=== PATIENT | female | born 1955 | race Caucasian/White ===

== ENCOUNTER 2021-02-19 02:17 | Observation (INO) | payer OTHER ==
[2021-02-19 03:07] VITALS: BMI 25.2
[2021-02-19 03:47] LABS: BASO % 0.7 % (0-2.0); EOS % 3.7 % (0-4.5); HEMATOCRIT 37.4 % (32.4-45.2); HEMOGLOBIN 12.5 GM/dL (10.7-15.3); MCH 27.5 pg (25.7-33.7); MCHC 33.5 g/dl (32.0-36.0); MEAN CELL VOLUME 82.2 fl (80-96); MEAN PLT VOLUME 7.7 fl (7.5-11.1); MONO % 7.7 % (3.8-10.2); NEUT % 50.9 % (42.8-82.8); PLATELET COUNT 210 10^3/uL (134-434); RBC 4.55 M/mm3 (3.60-5.2); RDW 14.7 % (11.6-15.6); WHITE BLOOD COUNT 6.4 K/mm3 (4.0-10.0)
[2021-02-19 03:53] LABS: INR 1.01 (0.83-1.09); PROTHROMBIN TIME (PATIENT) 11.3 SEC (9.7-13.0)
[2021-02-19 03:56] LABS: ACTIVATED PTT 30.7 SECONDS (25.2-36.5)
[2021-02-19 04:07] LABS: CHLORIDE 106 mmol/L (98-107); SODIUM 142 mmol/L (136-145)
[2021-02-19 04:09] LABS: ALBUMIN 3.6 g/dl (3.4-5.0); ANION GAP 8 MMOL/L (8-16); CALCIUM 9.5 mg/dL (8.5-10.1); CO2 28 mmol/L (21-32); GLUCOSE,RANDOM 188 mg/dL (74-106)
[2021-02-19 04:12] LABS: SGOT/AST 49 U/L (15-37); SGPT/ALT 35 U/L (13-61)
[2021-02-19 04:14] LABS: BILIRUBIN,TOTAL 0.2 mg/dL (0.2-1); TOT PROT 6.9 g/dl (6.4-8.2)
[2021-02-19 04:15] LABS: ALK PHOS 74 U/L (45-117)
[2021-02-19 05:41] LABS: LIPASE 193 U/L (73-393)
[2021-02-19 07:50] VITALS: BP 139/78; PULSE 66; TEMP 97.7
== END 2021-02-19 19:11 | disposition left against medical advice (07) ==
LOC: JER 02:17 → JERBED 06:10 → UNDOADMOB 06:10 → INTOOBSV 06:10 → JERBED 11:23 → UNDODISOB 19:11
PROVIDERS: ATTEND Internal Medicine
DX: R07.89 Other chest pain (principal); Z95.1 Presence of aortocoronary bypass graft; K76.0 Fatty (change of) liver, not elsewhere classified; K76.89 Other specified diseases of liver; I10 Essential (primary) hypertension; E11.9 Type 2 diabetes mellitus without complications; E03.9 Hypothyroidism, unspecified
CPT/HCPCS: 36415; 71045-TC-FY; 74177-TC; 80053; 82550; 83690; 84484; 85025; 85610; 85730; 93005; 93010; 99285-25; C9803; G0378; Q9967; U0003; U0005

== ENCOUNTER 2022-01-04 08:37 | Emergency (ER) | payer OTHER ==
[2022-01-04 09:15] VITALS: BP 183/89; PULSE 85; RESP 17; TEMP 97.9; BMI 35.9
[2022-01-04] MEDS ORDERED: LIDOCAINE 5% TOPICAL PATCH TP ONE (10:35)
[2022-01-04] MEDS ORDERED: LIDOCAINE 5% TOPICAL PATCH ONE (10:47)
[2022-01-04] MEDS ORDERED: LIDOCAINE PATCH REMOVAL MC SCH (22:00)
== END 2022-01-04 13:01 | disposition home or self-care (01) ==
LOC: JERFT 08:37
DX: M54.32 Sciatica, left side (principal)
CPT/HCPCS: 93971-TC; 99284-25

== ENCOUNTER 2022-03-26 09:00 | Day surgery (SDC) | payer OTHER ==
[2022-03-26] MEDS ORDERED: DEXAMETHASONE SODIUM PHOSPHATE 10 MG, ONDANSETRON INJECTION 8 MG in SODIUM CHLORIDE 100 ML IVPB ONE (09:30)
[2022-03-26] MEDS ORDERED: PERTUZUMAB 840 MG in SODIUM CHLORIDE 250 ML IVPB ONE (10:00)
[2022-03-26] MEDS ORDERED: TRASTUZUMAB-ANNS 500 MG in SODIUM CHLORIDE 250 ML IVPB ONE (11:00)
[2022-03-26 11:44] LABS: BASO % 0.1 % (0-2.0); HEMATOCRIT 29.6 % (32.4-45.2); HEMOGLOBIN 9.5 GM/dL (10.7-15.3); LYMPH % 9.4 % (8-40); MCH 24.2 pg (25.7-33.7); MCHC 32.2 g/dl (32.0-36.0); MEAN PLT VOLUME 7.3 fl (7.5-11.1); NEUT % 84.5 % (42.8-82.8); PLATELET COUNT 369 10^3/uL (134-434); RBC 3.94 M/mm3 (3.60-5.2); RDW 17.4 % (11.6-15.6); WHITE BLOOD COUNT 7.8 K/mm3 (4.0-10.0)
[2022-03-26 12:03] LABS: CHLORIDE 98 mmol/L (98-107); SODIUM 133 mmol/L (136-145)
[2022-03-26 12:06] LABS: ANION GAP 12 MMOL/L (8-16); BLOOD UREA NITROGEN 36.1 mg/dL (7-18); CO2 23 mmol/L (21-32)
[2022-03-26 12:08] LABS: BILIRUBIN,DIRECT 0.1 mg/dL (0.0-0.2)
[2022-03-26 12:09] LABS: CREATININE 1.3 mg/dL (0.55-1.3); SGOT/AST 52 U/L (15-37); SGPT/ALT 18 U/L (13-61)
[2022-03-26 12:10] LABS: TOT PROT 6.8 g/dl (6.4-8.2)
[2022-03-26 12:11] LABS: BILIRUBIN,TOTAL 0.3 mg/dL (0.2-1)
[2022-03-26 12:12] LABS: ALK PHOS 414 U/L (45-117)
[2022-03-26 12:26] LABS: GLUCOSE,RANDOM 494 mg/dL (74-106)
[2022-03-26] MEDS ORDERED: DOCETAXEL 100 MG in SODIUM CHLORIDE 250 ML IV ONE (12:30)
[2022-03-26] MEDS ORDERED: INSULIN (NOVOLOG) ASPART 100 UNITS/ML 10ML VIAL SQ ONE (13:00)
[2022-03-26 17:45] VITALS: TEMP 98.2
[2022-03-26 18:01] VITALS: BP 156/86; PULSE 99; RESP 20
== END 2022-03-26 18:38 | disposition home or self-care (01) ==
LOC: JONCCHEMO 09:00 → JRADIR 09:00 → J7W 13:05 → JONCCHEMO 18:38
PROVIDERS: ATTEND Internal Medicine Hematology & Oncology
PROC: 02HV33Z Insertion of Infusion Device into Superior Vena Cava, Percutaneous Approach (ICD-10-PCS; principal; 2022-03-26)
PROC: B518ZZA Fluoroscopy of Superior Vena Cava, Guidance (ICD-10-PCS; 2022-03-26)
PROC: 3E04305 Introduction of Other Antineoplastic into Central Vein, Percutaneous Approach (ICD-10-PCS; 2022-03-26)
DX: C50.919 Malignant neoplasm of unspecified site of unspecified female breast (principal)
CPT/HCPCS: 36415; 36569; 77001-TC-FY; 80048; 80076; 82962; 84703; 85025; 96367; 96413; 96417; C1751; J2405; J9171; J9306; Q5117

== ENCOUNTER 2022-03-27 15:03 | Day surgery (SDC) | payer OTHER ==
[~2022-03-27 15:03] MED LIST: PEGFILGRASTIM-CBQV (UDENYCA) 6 MG/0.6 ML SYRINGE SQ ONE
[2022-03-27 18:00] VITALS: BP 130/75; PULSE 96; RESP 20; TEMP 97.9
== END 2022-03-27 15:30 | disposition home or self-care (01) ==
LOC: JONCCHEMO 15:03
PROVIDERS: ATTEND Internal Medicine Hematology & Oncology
PROC: 3E013GC Introduction of Other Therapeutic Substance into Subcutaneous Tissue, Percutaneous Approach (ICD-10-PCS; principal; 2022-03-27)
PROC: 3E033GC Introduction of Other Therapeutic Substance into Peripheral Vein, Percutaneous Approach (ICD-10-PCS; 2022-03-27)
DX: C50.919 Malignant neoplasm of unspecified site of unspecified female breast (principal); C78.7 Secondary malignant neoplasm of liver and intrahepatic bile duct; C78.00 Secondary malignant neoplasm of unspecified lung; Z76.89 Persons encountering health services in other specified circumstances
CPT/HCPCS: 96365; 96372; Q5111

== ENCOUNTER 2022-04-16 09:02 | Day surgery (SDC) | payer OTHER ==
[2022-04-16] MEDS ORDERED: DEXAMETHASONE SODIUM PHOSPHATE 10 MG, ONDANSETRON INJECTION 8 MG in SODIUM CHLORIDE 100 ML IVPB ONE (09:30)
[2022-04-16] MEDS ORDERED: PERTUZUMAB 420 MG in SODIUM CHLORIDE 250 ML IVPB ONE (10:00)
[2022-04-16 10:30] LABS: BASO % 0.2 % (0-2.0); HEMATOCRIT 31.1 % (32.4-45.2); HEMOGLOBIN 10.2 GM/dL (10.7-15.3); LYMPH % 12.5 % (8-40); MCHC 32.9 g/dl (32.0-36.0); MEAN PLT VOLUME 6.6 fl (7.5-11.1); MONO % 1.8 % (3.8-10.2); NEUT % 85.5 % (42.8-82.8); PLATELET COUNT 418 10^3/uL (134-434); RBC 4.09 M/mm3 (3.60-5.2); RDW 19.9 % (11.6-15.6); WHITE BLOOD COUNT 8.8 K/mm3 (4.0-10.0)
[2022-04-16] MEDS ORDERED: SODIUM CHLORIDE IVPB ONE (10:30)
[2022-04-16] MEDS ORDERED: TRASTUZUMAB ANNS IVPB ONE (10:30)
[2022-04-16 10:51] LABS: BLOOD UREA NITROGEN 19.7 mg/dL (7-18); CALCIUM 9.2 mg/dL (8.5-10.1)
[2022-04-16 10:54] LABS: BILIRUBIN,DIRECT 0.1 mg/dL (0.0-0.2)
[2022-04-16 10:56] LABS: BILIRUBIN,TOTAL 0.4 mg/dL (0.2-1); TOT PROT 6.7 g/dl (6.4-8.2)
[2022-04-16] MEDS ORDERED: DOCETAXEL 100 MG in SODIUM CHLORIDE 250 ML IV ONE (11:00)
[2022-04-16] MEDS ORDERED: ALBUTEROL SO4 HFA INHALER IH ONE (13:49)
[2022-04-16] MEDS ORDERED: ALBUTEROL SO4 HFA INHALER IH PRN (15:02)
[2022-04-16 15:33] VITALS: BP 124/55; PULSE 114; RESP 24; TEMP 97.9
[2022-04-16] MEDS ORDERED: PORTA CATH FLUSH 10 ML IVPUSH PRN (15:33)
== END 2022-04-16 16:20 | disposition home or self-care (01) ==
LOC: JONCCHEMO 09:02
PROVIDERS: ATTEND Internal Medicine Hematology & Oncology
DX: Z51.11 Encounter for antineoplastic chemotherapy (principal); C50.919 Malignant neoplasm of unspecified site of unspecified female breast; C78.7 Secondary malignant neoplasm of liver and intrahepatic bile duct; C78.00 Secondary malignant neoplasm of unspecified lung
CPT/HCPCS: 36415; 80048; 80076; 85025; 96413; 96417; J2405; J9171; J9306; Q5117

== ENCOUNTER 2022-04-17 14:35 | Day surgery (SDC) | payer OTHER ==
[2022-04-17 16:51] VITALS: BP 109/60; PULSE 100; RESP 20; TEMP 98.3
== END 2022-04-17 15:00 | disposition home or self-care (01) ==
LOC: JONCCHEMO 14:35 → J7W 14:35 → JONCCHEMO 15:00
PROVIDERS: ATTEND Internal Medicine Hematology & Oncology
PROC: 3E013GC Introduction of Other Therapeutic Substance into Subcutaneous Tissue, Percutaneous Approach (ICD-10-PCS; principal; 2022-04-17)
DX: C78.7 Secondary malignant neoplasm of liver and intrahepatic bile duct (principal); C78.00 Secondary malignant neoplasm of unspecified lung; Z76.89 Persons encountering health services in other specified circumstances
CPT/HCPCS: 96372; Q5111